=== PATIENT | male | born 1930 | race Caucasian/White ===

== ENCOUNTER → 2017-03-01 | Outpatient (CLI) | payer MEDICARE, BC ==
[2017-03-01 15:15] LABS: Basophils # (A) 0.1 k/uL (0-0.2); Basophils % (A) 0 %; CH 31.5; CHCM 33.1; Eosinophils # (A) 0.2 k/uL (0-0.7); Eosinophils % (A) 1 %; HCT 48.6 % (39.0-53.0); HGB 15.3 gm/dL (13.0-17.5); Luc # (Auto) 0.25; Luc % (Auto) 2; Lymphocytes # (A) 2.3 k/uL (1.0-4.8); Lymphocytes % (A) 18 %; MCH 30.2 pg (25.0-35.0); MCHC 31.5 g/dL (31.0-37.0); MCV 95.9 fL (80.0-100.0); Mean Platelet Volume 8.8; Monocytes # (A) 0.8 k/uL (0-1.0); Monocytes % (A) 6 %; Neutrophils # (A) 9.5 k/uL (1.3-7.7); Neutrophils % (A) 73 %; RBC 5.07 m/uL (4.30-5.90); RDW 13.9 % (11.5-15.5); WBC (Perox) 13.47
[2017-03-01 15:34] LABS: ALT 29 U/L (21-72); AST 25 U/L (17-59); Alkaline Phosphatase 81 U/L (38-126); Anion Gap 10 mmol/L; Blood Urea Nitrogen 30 mg/dL (9-20); Calcium 9.5 mg/dL (8.4-10.2); Carbon Dioxide 27 mmol/L (22-30); Chloride 108 mmol/L (98-107); Glucose 105 mg/dL (74-99); Non-African American GFR(MDRD) >60 (>60 ml/min/1.73 sqM); Potassium 4.4 mmol/L (3.5-5.1); Sodium 145 mmol/L (137-145); Total Bilirubin 0.8 mg/dL (0.2-1.3)
== END | disposition home or self-care (01) ==
LOC: LABWHC1 14:44
PROVIDERS: ATTEND Family Medicine
DX: R53.83 Other fatigue (principal); R11.0 Nausea; R63.4 Abnormal weight loss
CPT/HCPCS: 36415; 80053; 85025

== ENCOUNTER → 2017-03-08 | Outpatient (CLI) | payer MEDICARE, BC ==
[2017-03-08 13:51] LABS: Blood Urea Nitrogen 22 mg/dL (9-20); Non-African American GFR(MDRD) >60 (>60 ml/min/1.73 sqM)
--- NOTE | 2017-03-08 15:37 | CT ---
EXAMINATION TYPE: CT abdomen pelvis w con DATE OF EXAM: 03/08/2017 COMPARISON: NONE INDICATION: Patient complains of generalized abdominal pain and diarrhea. DLP: 1648 mGycm, Automated exposure control for dose reduction was used. CONTRAST: 100 mL of Omnipaque 300. Study performed with Oral Contrast TECHNIQUE: Axial images were obtained from above the diaphragm to the pubic rami in the axial plane a t 5 mm thick sections. Reconstructed images are reviewed on the computer in the coronal plane. FINDINGS: Limited CT sections are obtained the lung bases. The lung bases are clear. CT ABDOMEN: Loop of colon is anterior to the liver. Liver: Multiple small hepatic cysts appear to be present. There is elevation of the right diaphragm. Spleen: Normal Pancreas: Normal Adrenal glands: The adrenal glands are normal. Gallbladder: Normal Kidneys: No masses are evident. No hydronephrosis is present. Multiple renal cysts are present. De layed images were obtained through the kidneys, which remain unremarkable. Aorta: Vascular calcification is within the aorta. There may be mild prominence of the aortic calibe r. However, this tapers normally throughout its visualized course. Aneurysmal dilatation is not evide nt. Inferior vena cava: Normal. CT PELVIS: Loops of bowel within the abdomen and pelvis are normal. Large fecal bolus at the level the rectu m. Appendix: Not identified Urinary bladder: Normal. Genitourinary structures: Prostate appears unremarkable. Osseous structures: No suspicious lytic or sclerotic lesions. Facet changes are in the lower lumbar s pine. IMPRESSIONS: 1. Fecal bolus at the level the rectum. 2. Renal and hepatic cysts.
== END | disposition home or self-care (01) ==
LOC: RADCTMAIN 13:15
PROVIDERS: ATTEND Family Medicine
DX: N28.1 Cyst of kidney, acquired (principal); K76.89 Other specified diseases of liver; R11.0 Nausea; Z91.040 Latex allergy status
CPT/HCPCS: 82565; 84520; 74177; 36415; Q9967

== ENCOUNTER → 2017-03-10 | Outpatient (CLI) | payer MEDICARE, BC ==
--- NOTE | 2017-03-10 15:44 | FL ---
EXAMINATION TYPE: FL UGI air DATE OF EXAM: 03/10/2017 COMPARISON: NONE HISTORY: Menorrhagia abdominal pain diarrhea TECHNIQUE: A double contrast UGI study is performed. FINDINGS: Note is made during the examination is some retained contrast through the colon causing mild limitati on during portions of the exam Esophagus dilates to normal caliber has normal contour to the gastroesophageal junction. Gastroesopha geal junction opens to normal caliber. Some reflux is evident during the exam. Fundus body and antrum of the stomach are well visualized. No intraluminal or extramural defects are evident Primarily empties into the duodenal cap and sweep. There is some deviation of the second portion of t he duodenum. Duodenal fold pattern appears normal. IMPRESSION: 1. Gastroesophageal reflux. 2. Mild duodenitis
== END ==
LOC: RADFLWHC 09:25
PROVIDERS: ATTEND Family Medicine
DX: K21.9 Gastro-esophageal reflux disease without esophagitis (principal); K29.80 Duodenitis without bleeding; R63.4 Abnormal weight loss; Z91.040 Latex allergy status
CPT/HCPCS: 74246

== ENCOUNTER → 2017-07-15 | Outpatient (CLI) | payer MEDICARE, BC | END | disposition home or self-care (01) | LOC: LABWHC1 12:05 | PROVIDERS: ATTEND Urology | DX: C61 Malignant neoplasm of prostate (principal) | CPT/HCPCS: 36415; 84153 ==

== ENCOUNTER → 2017-12-31 | Outpatient (CLI) | payer MEDICARE ==
[~2017-12-31] MED LIST: DOBUTamine 250 MG in DEXTROSE 5% IN WATER 250 ML IV ONE
--- NOTE | 2017-12-31 11:48 | ECHOF ---
Referral Reason:Aortic Root Dilation MEASUREMENTS -------- HEIGHT: 177.8 cm WEIGHT: 78.0 kg BP: 200/72 IVSd: 1.2 cm (0.6 - 1.1) LVIDd: 4.2 cm (3.9 - 5.3) LVPWd: 1.2 cm (0.6 - 1.1) IVSs: 1.9 cm LVIDs: 1.8 cm LVPWs: 1.7 cm LAESV Index (A-L): 21.70 ml/m Ao Diam: 3.7 cm (2.0 - 3.7) AV Cusp: 2.0 cm (1.5 - 2.6) LA Diam: 3.1 cm (2.7 - 3.8) AR PHT: 481 ms RAP: 5.00 mmHg RVSP: 11.24 mmHg FINDINGS -------- Atrial fibrillation. This was a technically adequate study. The left ventricular size is normal. There is mild concentric left ventricular hypertrophy. Overa ll left ventricular systolic function is normal with, an EF between 55 - 60 %. The right ventricle is normal in size and function. Normal LA size by volume 22+/-6 ml/m2. The right atrium is normal in size. Aortic valve is trileaflet and is mildly thickened. There is moderate aortic regurgitation. There is no evidence of aortic stenosis. The mitral valve leaflets are mildly thickened. There is trace to mild mitral regurgitation. Trace tricuspid regurgitation present. Right ventricular systolic pressure is normal at < 35 mmHg. There is no evidence of pulmonary hypertension. Trace/mild (physiologic) pulmonic regurgitation. 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 The aortic root is dilated measuring 3.7cm. IVC Not well visulized. There is a small pericardial effusion is located near the right ventricle. CONCLUSIONS -------- 1. Atrial fibrillation. 2. This was a technically adequate study. 3. The left ventricular size is normal. 4. There is mild concentric left ventricular hypertrophy. 5. Overall left ventricular systolic function is normal with, an EF between 55 - 60 %. 6. Normal LA size by volume 22+/-6 ml/m2. 7. Aortic valve is trileaflet and is mildly thickened. 8. There is moderate aortic regurgitation. 9. The mitral valve leaflets are mildly thickened. 10. There is trace to mild mitral regurgitation. 11. Trace tricuspid regurgitation present. 12. Right ventricular systolic pressure is normal at < 35 mmHg. 13. There is no evidence of pulmonary hypertension. 14. 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 15. The aortic root is dilated measuring 3.7cm. 16. IVC Not well visulized. 17. There is a small pericardial effusion is located near the right ventricle. INTERNAL GRINDER: Rusty Lee RDCS
== END | disposition home or self-care (01) ==
LOC: RADNMMAIN 09:27
PROVIDERS: ATTEND Family Medicine
DX: I08.0 Rheumatic disorders of both mitral and aortic valves (principal); I48.91 Unspecified atrial fibrillation; I25.9 Chronic ischemic heart disease, unspecified; Z91.040 Latex allergy status
CPT/HCPCS: 93306; J1250

== ENCOUNTER 2018-04-12 13:57 | Inpatient (IN) | payer MEDICARE ==
[2018-04-12] MEDS ORDERED: MORPHINE SULFATE 2 MG/ML SYRINGE IVP STA ×3 (14:52→19:34)
--- NOTE | 2018-04-12 14:59 | ED ---
General Adult HPI - General Stated complaint: Fall Time Seen by Provider: 04/12/18 14:00 Source: RN notes reviewed - History of Present Illness Initial comments: This is an 87-year-old male who presents emergency Department complaining that his right hip hurts. Patient states tripped over shoes and fell backwards onto his hip. states she witnessed it is well he never hit his head or neck. Patient denies hitting his head or neck. Patient denies any headache patient denies neck pain patient denies any numbness or weakness. Patient denies any other pain besides his right hip. Patient denies any knee pain or ankle pain or foot pain. - Related Data Home Medications Medication Instructions Recorded Confirmed Levothyroxine Sodium [Synthroid] 25 mcg PO DAILY 04/12/18 04/12/18 Lisinopril 40 mg PO DAILY 04/12/18 04/12/18 Allergies Allergy/AdvReac Type Severity Reaction Status Date / Time latex Allergy Rash/Hives Verified 04/12/18 14:59 Review of Systems ROS Statement: Those systems with pertinent positive or pertinent negative responses have been documented in the HPI. ROS Other: All systems not noted in ROS Statement are negative. General Exam - General Exam Comments Initial Comments: GENERAL: Patient is well-developed and well-nourished. Patient is nontoxic and well- hydrated and is in mild distress. ENT: Neck is soft and supple. No significant lymphadenopathy is noted. Oropharynx is clear. Moist mucous membranes. Neck has full range of motion without eliciting any pain. EYES: The sclera were anicteric and conjunctiva were pink and moist. Extraocular movements were intact and pupils were equal round and reactive to light. Eyelids were unremarkable. PULMONARY: Unlabored respirations. Good breath sounds bilaterally. No audible rales rhonchi or wheezing was noted. CARDIOVASCULAR: There is a regular rate and rhythm without any murmurs gallops or rubs. ABDOMEN: Soft and nontender with normal bowel sounds. SKIN: Skin is clear with no lesions or rashes and otherwise unremarkable. NEUROLOGIC: Patient is alert and oriented x3. Cranial nerves II through XII are grossly intact. Motor and sensory are also intact. Normal speech, volume and content. Symmetrical smile. MUSCULOSKELETAL: Patient has tenderness of the left hip on palpation as well as pain with external rotation LYMPHATICS: No significant lymphadenopathy is noted PSYCHIATRIC: Normal psychiatric evaluation. Course Vital Signs 04/12/18 04/12/18 14:45 15:57 Temperature 97.0 F L Pulse Rate 57 L 58 L Respiratory 18 16 Rate Blood Pressure 220/97 221/98 O2 Sat by Pulse 98 98 Oximetry Medical Decision Making - Medical Decision Making EKG shows sinus bradycardia 57 bpm. Was 236 QRS 1:30 for QT intervals 464 QTC is 451. Patient's EKG shows right bundle shereen block and there are some T- wave inversions in the precordial leads V3 through V6 as well as inferior leads. I spoke with [facility] from [facility] she agreed to accept the patient I admitted the patient and I wrote admitting orders and consult did the primary medical care doctor for medical management X-ray shows a femoral neck fracture on the right - Lab Data Result diagrams: 04/12/18 15:02 04/12/18 15:02 Lab Results 04/12/18 04/12/18 04/12/18 Range/Units 15:02 15:02 15:02 WBC 9.3 (3.8-10.6) k/uL RBC 4.70 (4.30-5.90) m/uL Hgb 14.0 (13.0-17.5) gm/dL Hct 42.1 (39.0-53.0) % MCV 89.6 (80.0-100.0) fL MCH 29.7 (25.0-35.0) pg MCHC 33.2 (31.0-37.0) g/dL RDW 13.9 (11.5-15.5) % Plt Count 187 (150-450) k/uL Neutrophils % 77 % Lymphocytes % 13 % Monocytes % 6 % Eosinophils % 2 % Basophils % 0 % Neutrophils # 7.2 (1.3-7.7) k/uL Lymphocytes # 1.2 (1.0-4.8) k/uL Monocytes # 0.6 (0-1.0) k/uL Eosinophils # 0.2 (0-0.7) k/uL Basophils # 0.0 (0-0.2) k/uL PT 10.8 (9.0-12.0) sec INR 1.1 (<1.2) APTT 22.6 (22.0-30.0) sec Sodium 139 (137-145) mmol/L Potassium 3.5 (3.5-5.1) mmol/L Chloride 110 H (98-107) mmol/L Carbon Dioxide 26 (22-30) mmol/L Anion Gap 3 mmol/L BUN 15 (9-20) mg/dL Creatinine 0.90 (0.66-1.25) mg/dL Est GFR (CKD-EPI)AfAm 88 (>60 ml/min/1.73 sqM) Est GFR (CKD-EPI)NonAf 76 (>60 ml/min/1.73 sqM) Glucose 99 (74-99) mg/dL Calcium 9.1 (8.4-10.2) mg/dL Total Bilirubin 0.8 (0.2-1.3) mg/dL AST 22 (17-59) U/L ALT 24 (21-72) U/L Alkaline Phosphatase 65 (38-126) U/L Total Protein 5.9 L (6.3-8.2) g/dL Albumin 3.3 L (3.5-5.0) g/dL Disposition Clinical Impression: Femoral neck fracture Disposition: ADMITTED IP TO THIS HOSP Referrals: Roscoe Kessler MD [Primary Care Provider] - 1-2 days Time of Disposition: 16:30
[2018-04-12 15:25] LABS: Basophils % (A) 0 %; Eosinophils # (A) 0.2 k/uL (0-0.7); Eosinophils % (A) 2 %; HCT 42.1 % (39.0-53.0); Lymphocytes # (A) 1.2 k/uL (1.0-4.8); Lymphocytes % (A) 13 %; MCH 29.7 pg (25.0-35.0); MCHC 33.2 g/dL (31.0-37.0); MCV 89.6 fL (80.0-100.0); Mean Platelet Volume 7.6; Monocytes # (A) 0.6 k/uL (0-1.0); Monocytes % (A) 6 %; Neutrophils # (A) 7.2 k/uL (1.3-7.7); Neutrophils % (A) 77 %; Platelet Count 187 k/uL (150-450); RDW 13.9 % (11.5-15.5); WBC 9.3 k/uL (3.8-10.6)
[2018-04-12 15:37] LABS: Albumin 3.3 g/dL (3.5-5.0); Calcium 9.1 mg/dL (8.4-10.2); Potassium 3.5 mmol/L (3.5-5.1); Total Bilirubin 0.8 mg/dL (0.2-1.3); Total Protein 5.9 g/dL (6.3-8.2)
[2018-04-12 15:40] LABS: INR 1.1 (<1.2); Partial Thromboplastin Time 22.6 sec (22.0-30.0); Prothrombin Time 10.8 sec (9.0-12.0)
--- NOTE | 2018-04-12 15:41 | XR ---
EXAMINATION TYPE: XR chest 1V DATE OF EXAM: 04/12/2018 COMPARISON: NONE HISTORY: 87-year-old male with fall TECHNIQUE: Single frontal view of the chest is obtained. FINDINGS: Low lung volumes. Elevated right hemidiaphragm obscuring the right heart margin. No consolidation, si gnificant pleural effusion, or pneumothorax seen along for these limitations. IMPRESSION: Elevated right hemidiaphragm and low lung volumes limiting assessment. There are chronic appearing ch anges without definite acute process.
--- NOTE | 2018-04-12 15:56 | XR ---
EXAMINATION TYPE: XR Hip RT and AP Pelvis DATE OF EXAM: 04/12/2018 COMPARISON: CT abdomen pelvis 03/08/2017 HISTORY: Trauma and pain TECHNIQUE: A single AP view of the pelvis is obtained. Two views of the hip are obtained. FINDINGS: There is a right femoral neck fracture present. Minimal displacement. No dislocation. Vascu lar calcifications noted incidentally. There are surgical clips present in the pelvis. Bone mineraliz ation is reduced. Degenerative disc changes in the visualized spine, there is a spinal curvature. IMPRESSION: Right femoral neck fracture.
[2018-04-12] MEDS ORDERED: SODIUM CHLORIDE 0.9% 1,000 ML IV ONE (16:31)
[2018-04-12] MEDS ORDERED: hydrALAZINE HCL 20 MG/ML 1 ML VIAL IVP STA (17:10)
[2018-04-12 21:27] LABS: Appearance,Urine Clear (Clear); Bilirubin,Urine Negative (Negative); Blood,Urine Negative (Negative); Color,Urine Colorless; Glucose,Urine (UA) Negative (Negative); Ketones,Urine Trace (Negative); Leukocyte Esterase,Urine Negative (Negative); Nitrite,Urine Negative (Negative); Protein,Urine Negative (Negative); Specific Gravity,Urine 1.006 (1.001-1.035); Urobilinogen,Urine <2.0 mg/dL (<2.0)
[2018-04-12] MEDS ORDERED: hydrALAZINE HCL 10 MG TAB PO SCH (22:00)
--- NOTE | 2018-04-12 22:21 | CT ---
EXAMINATION: CT brain wo/w con DATE AND TIME: 04/12/2018 9:43 PM ORDERING PROVIDER: Roscoe Kessler MD CLINICAL INDICATION: Fall, pain TECHNIQUE: Standard departmental protocol. COMPARISON: None. DESCRIPTION: The calvarium is intact. There is no intracranial hemorrhage. There is no mass or mass effect. There is no definite new attenu ation defect. Remainder of the intra-axial and extra-axial compartment examination is unremarkable. The contrast enhancement pattern is normal. The paranasal sinuses, middle ear cavities, and mastoid sinus air cells are clear. The orbits are int act. IMPRESSION: NO ACUTE PROCESS.
[2018-04-13 00:16] VITALS: BMI 25.8
[2018-04-13] MEDS: hydrALAZINE HCL 25 MG TAB PO SCH ×4 (01:59→21:37)
[2018-04-13] MEDS ORDERED: ACETAMINOPHEN IV (For NPO) 1,000 MG in EMPTY BAG 1 BAG IVPB STA (06:55)
--- NOTE | 2018-04-13 10:03 | P.HPOR ---
History of Present Illness H&P Date: 04/13/18 This is an 87-year-old male who is admitted for right hip fracture. The patient has a history of dementia and is a poor historian. There's no family present in the room to obtain a history. According to the patient's records the patient tripped over his shoes and fell backwards. A CT of the brain done in the emergency room is negative for any acute process. X-rays of the right hip and pelvis from the emergency room [facility] show a right femoral neck fracture. Patient's past medical history significant for prostate cancer, dementia, hyperlipidemia, hypertension and thyroid disorder. Review of Systems ROS unobtainable: due to mental status Past Medical History Past Medical History: Cancer, Dementia, Hyperlipidemia, Hypertension, Prostate Disorder, Thyroid Disorder Additional Past Medical History / Comment(s): prostate CA History of Any Multi-Drug Resistant Organisms: None Reported Past Surgical History: Prostate Surgery, Tonsillectomy Past Psychological History: No Psychological Hx Reported Smoking Status: Never smoker Past Alcohol Use History: None Reported Past Drug Use History: None Reported Medications and Allergies Home Medications Medication Instructions Recorded Confirmed Type Levothyroxine Sodium [Synthroid] 25 mcg PO DAILY 04/12/18 04/12/18 History Lisinopril 40 mg PO DAILY 04/12/18 04/12/18 History Allergies Allergy/AdvReac Type Severity Reaction Status Date / Time latex Allergy Rash/Hives Verified 04/12/18 14:59 Physical Examination On exam patient is lying comfortably in bed in no acute distress. There is tenderness to palpation over the right hip. Skin is intact. Calf is soft and nontender to palpation. Patient has full foot and ankle motion bilaterally without pain or difficulty. Right lower extremity is warm and well perfused. Patient has full range of motion of the head and neck. No tenderness to palpation of bilateral upper extremities. Left lower extremity with good range of motion without pain. Neurovascular status and circulatory status are intact. Results X-rays of the right hip and pelvis show right femoral neck fracture. - Labs Labs: Abnormal Lab Results - Last 24 Hours (Table) 04/12/18 04/12/18 Range/Units 15:02 21:03 Chloride 110 H (98-107) mmol/L Total Protein 5.9 L (6.3-8.2) g/dL Albumin 3.3 L (3.5-5.0) g/dL Urine Ketones Trace H (Negative) H & H 04/12/18 Range/Units 15:02 Hgb 14.0 (13.0-17.5) gm/dL Hct 42.1 (39.0-53.0) % Coagulation 04/12/18 Range/Units 15:02 INR 1.1 (<1.2) Result Diagrams: 04/12/18 15:02 04/12/18 15:02 Assessment and Plan (1) Fall Current Visit: Yes Status: Acute Code(s): W19.XXXA - UNSPECIFIED FALL, INITIAL ENCOUNTER SNOMED Code(s): 4919274 (2) Femoral neck fracture Current Visit: Yes Status: Acute Code(s): S72.009A - FRACTURE OF UNSP PART OF NECK OF UNSP FEMUR, INIT SNOMED Code(s): 2963597 Plan: 1. Patient is to be NPO. 2. Nonweightbearing to the right lower extremity. 3. DVT prophylaxis with SCDs. 4. Appreciate input from medicine. 5. Right hip hemiarthroplasty is scheduled for this afternoon pending medical clearance and consented.
[2018-04-13] MEDS: MORPHINE SULFATE 2 MG/ML SYRINGE IVP PRN ×2 (10:34→18:55)
--- NOTE | 2018-04-13 11:55 | PN ---
PROGRESS NOTE DATE OF SERVICE: 04/13/2018 CHIEF COMPLAINT: Fractured right hip and FUO. HISTORY OF PRESENT ILLNESS: This gentleman done fairly well during the night. He has been very agitated, however. Blood pressure is now under good control. PHYSICAL EXAM: He is awake and alert. He is confused. Head, ears, eyes, nose, mouth, and throat are normal. Chest is clear. Cardiac exam is normal. The abdomen is soft, nontender. Roberson catheter is draining. Extremities are normal. Neurologically, he is unchanged. IMPRESSION: 1. Fracture of the right hip. 2. Fever of unknown origin. 3. Dementia. 4. Hypothyroidism. PLAN: He is cleared for surgery and is going to the OR today. We await cultures of the blood and urine. MMODL / IJN: [id number] /
--- NOTE | 2018-04-13 12:04 | CONS ---
CONSULTATION CHIEF COMPLAINT: Fall. HISTORY OF PRESENT ILLNESS: This is another admission for this 87-year-old white male with dementia. He lives at home with his and he has been fairly healthy over the years. He is becoming an increasingly difficult management problem. He has a history of hypertension. It is not clear how well it is being controlled. He apparently fell at home and was brought to the emergency room where he was found to have a right femoral neck fracture. In the emergency room, he apparently fell again. There was no evidence of any new injury. He did strike his head and a CT was ordered and it was normal. The only other difficulty is that he is running a fever. There has been no history of abdominal pain, vomiting, cough, urinary symptoms, etc. Review of systems could not be obtained due to his dementia. He is allergic to LATEX. When he was last seen in January, he was on Tenoretic 100 once a day, lisinopril 40 once a day, potassium 20 mEq three a day, Bentyl 10 mg q.i.d. p.r.n., levothyroxine 0.025 mg once a day, simvastatin 40 mg at bedtime, Lomotil 1 or 2 q.i.d. p.r.n. and 81 mg of aspirin. He is not a smoker. PHYSICAL EXAM: Blood pressure is 209/80 with a pulse of 92 and he was in sinus, respirations 16, temperature is 100.5. GENERAL: He appeared to be slightly pale, slightly dehydrated. Lymph nodes are not enlarged. Head, ears, eyes, nose, mouth, and throat were grossly normal and mucous membranes are dry. Neck veins are not distended. Carotids are normal. Chest is clear to auscultation and percussion. Cardiac exam demonstrates a sinus rhythm with no murmurs or extra sounds. Abdomen is soft and nontender without visceromegaly or masses. EXTREMITIES: Normal except for external rotation of the right leg. Neurologically, he was confused, but otherwise intact. IMPRESSION: 1. Fracture of the right hip. 2. Fever of unknown origin. 3. Dementia. 4. History of hypertension. 5. Hypothyroidism. PLAN: 1. Bed rest. 2. IV fluids. 3. Orthopedic consult. 4. A Roberson catheter drainage for UA and culture. 5. Blood cultures. MMODL / IJN: [id number] /
[2018-04-13] MEDS ORDERED: IV FLUID CONTINUATION 1,000 ML IV ONE (12:50)
[2018-04-13] MEDS ORDERED: MAGNESIUM HYDROXIDE 2,400 MG/10 ML CUP PO PRN (13:49)
[2018-04-13] MEDS ORDERED: DIAZEPAM 5 MG TAB PO PRN (13:49)
[2018-04-13] MEDS ORDERED: NALOXONE 0.4 MG/ML 1 ML VIAL IV PRN (13:49)
[2018-04-13] MEDS ORDERED: traMADol 50 MG TAB PO PRN ×2 (13:51)
[2018-04-13] MEDS ORDERED: MIDAZOLAM 2 MG/2 ML VIAL ONE (14:34)
[2018-04-13] MEDS ORDERED: fentaNYL (PF) 50 MCG/ML 2 ML AMP ONE (14:34)
[2018-04-13] MEDS ORDERED: LABETALOL 5 MG/ML VIAL MDV ONE (14:34)
[2018-04-13] MEDS ORDERED: KETAMINE 10 MG/ML 20 ML VIAL ONE (14:34)
[2018-04-13] MEDS ORDERED: SODIUM CHLORIDE 0.9% 50 ML with ceFAZolin 2,000 MG IV ONE ×2 (14:44)
[2018-04-13] MEDS ORDERED: ceFAZolin 1,000 MG in SODIUM CHLORIDE 0.9% 1,000 ML IRRIGATION ONE (15:11)
--- NOTE | 2018-04-13 15:34 | P.OP ---
Date of Procedure: 04/13/18 Preoperative Diagnosis: Subcapital fracture right hip Postoperative Diagnosis: Subcapital fracture right hip Procedure(s) Performed: Right hip hemiarthroplasty Implants: Pérez and nephew Polarstem size 5 standard Pérez & Nephew tandem unipolar, 55 mm Pérez & Nephew tandem unipolar 12/14 taper sleeve, +4 mm All components were press-fit. Anesthesia: spinal Surgeon: Johnny Billy Mail Opener #1: Zeny Dimas Estimated Blood Loss (ml): 50 Pathology: other (Femoral head) Condition: stable Disposition: PACU Indications for Procedure: This is an 87-year-old gentleman sustained a fall yesterday. He sustained a subcapital fracture of his right hip after discussing the surgical nonsurgical treatment options with him and his family at length, I recommended a right hip hemiarthroplasty and informed consent was obtained. Operative Findings: The operative findings are consistent with a subcapital fracture of the right hip Description of Procedure: Patient was seen and evaluated in the preoperative area, consent was reviewed and the operative site was marked with a skin marker. Patient was then brought to the operating room and given 2 g of Ancef intravenously. A spinal anesthetic was administered by the anesthesia department. Patient was then placed in a lateral decubitus position and held with a Montral hip positioner. The bony prominences were well-padded and an axillary roll was placed. The hip was then prepped and draped in the usual sterile fashion. A universal timeout was then performed which confirmed the patient's name, surgical site, ALLERGIES, and procedure. A standard anterolateral approach the hip was performed. Skin and subcutaneous tissues were sharply incised with an incision centered over the tip of the greater trochanter. The incision was carefully dissected down to the fascia. The fascia was then split in line with skin incision and a Charnley retractor was gently placed. The abductors were then identified, and the anterior one third of the abductors were released off the trochanter and one large sleeve. The fracture hematoma was evacuated and the proximal femur was exposed by externally rotating the femur. The fracture site was readily visualized. Next , using an osteotomy guide, the proximal femur was osteotomized at the appropriate level of the above the lesser trochanter. This bone was then removed. Attention was then turned to the femoral head. Using a corkscrew, the femoral head was removed from the acetabulum without incident. The acetabulum was inspected, and found to have no significant arthrosis. Femoral head was then measured. Attention was then redirected to the femur. Proximal femur was re-exposed and a box osteotome was used to lateralize the proximal femur. A candle molder hand was then used to locate the femoral canal. Sequential broaching was then performed to the appropriate size. The calcar was then planed and trial head and neck were placed. The hip was then gently reduced. Leg lengths were checked and found to be equal. Hip was then taken through a full range of motion was stable throughout. The hip was then gently dislocated with the aid of a bone hook. The trial head and neck were then removed. The femoral broach was then inspected and found to have a secure fit. The broach was then removed. The hip was then copiously irrigated with antibiotic solution with a pulse lavage. Components were then opened and the femoral stem was then impacted into the proximal femur. The trunnion was cleaned and dried, and the femoral head and neck were then impacted. Hip was again gently reduced. Again leg lengths were checked and found to be equal, and the hip was taken through a full range of motion and found to be stable. The hip was again irrigated with pulsatile lavage, then followed by the Irrrisept solution. The abductors were then repaired through drill holes to the bone to the greater trochanter, utilizing #5 Ethibond suture. Next the fascia was repaired with #2 strata fix suture. The subcutaneous tissue was then repaired with 3-0 Vicryl. The subcuticular tissue was then repaired with 3-0 strata fix suture. Skin was then closed with Dermabond tape. A sterile dressing was then applied and the patient was transported to the recovery room in stable condition. Mail Opener HERMAN Escoto was required due to the complexity of surgery the need for skilled surgical services coordinator. She assisted with positioning the patient , draping the patient, retraction during the surgery, and closure of the wound.
[2018-04-13] MEDS: LACTATED RINGERS 1,000 ML IV ONE ×2 (15:38→18:21)
[2018-04-13] MEDS: hydrALAZINE HCL 20 MG/ML 1 ML VIAL IV ONE ×2 (16:21→16:37)
[2018-04-13] MEDS ORDERED: LABETALOL 5 MG/ML VIAL MDV IV ONE (16:50)
--- NOTE | 2018-04-13 17:35 | XR ---
EXAMINATION TYPE: XR Hip Limited RT DATE OF EXAM: 04/13/2018 COMPARISON: NONE HISTORY: Postop hip pain TECHNIQUE: Single view FINDINGS: There is a right hip prosthesis. Components are in anatomic position. IMPRESSION: New right hip prosthesis. No complicating process.
[2018-04-13] MEDS: SODIUM CHLORIDE 0.9% 1,000 ML IV SCH ×2 (18:20→21:37)
[2018-04-13 19:26] LABS: Basophils % (A) 0 %; Eosinophils # (A) 0.1 k/uL (0-0.7); Eosinophils % (A) 1 %; HCT 40.6 % (39.0-53.0); HGB 13.3 gm/dL (13.0-17.5); Lymphocytes # (A) 0.7 k/uL (1.0-4.8); Lymphocytes % (A) 4 %; MCH 29.6 pg (25.0-35.0); MCHC 32.9 g/dL (31.0-37.0); Mean Platelet Volume 8.2; Monocytes # (A) 0.6 k/uL (0-1.0); Monocytes % (A) 3 %; Neutrophils # (A) 14.7 k/uL (1.3-7.7); Neutrophils % (A) 91 %; Platelet Count 160 k/uL (150-450); RBC 4.51 m/uL (4.30-5.90); WBC 16.2 k/uL (3.8-10.6)
[2018-04-13] MEDS: SENNOSIDES-DOCUSATE SODIUM 1 EACH TAB PO SCH (21:37)
[2018-04-14] MEDS: ceFAZolin IN SWFI 2 GM/20 ML SYRINGE IVP SCH ×2 (01:59→08:02)
[2018-04-14] MEDS: LISINOPRIL 20 MG TAB PO SCH (08:02)
[2018-04-14] MEDS: RIVAROXABAN 10 MG TAB PO SCH (08:02)
[2018-04-14] MEDS: hydrALAZINE HCL 25 MG TAB PO SCH ×3 (08:02→20:09)
--- NOTE | 2018-04-14 09:39 | P.PN ---
Subjective Progress Note Date: 04/14/18 This is an 87-year-old male who is status post right hip hemiarthroplasty. This is postoperative day #1. Patient is seen and evaluated at bedside. Patient states that his pain is well controlled. Patient denies any fever/chills , numbness, weakness, tingling, abdominal pain, shortness of breath or chest pain. Objective - Vital Signs Vital signs: Vital Signs Temp 98.3 F 04/14/18 07:20 Pulse 94 04/14/18 07:20 Resp 18 04/14/18 07:20 BP 182/85 04/14/18 07:20 Pulse Ox 93 L 04/14/18 07:20 Intake & Output 04/13/18 04/14/18 04/14/18 18:59 06:59 18:59 Intake Total 1451 1937 237 Output Total 250 420 Balance 1201 1517 237 Intake: IV 1451 Intake, IV Titration 1197 Amount Lactated Ringers 1,000 ml 500 @ 0 mls/hr IV .[facility] Rx#:[id number] Sodium Chloride 0.9% 1, 697 000 ml @ 65 mls/hr IV . [id number] [facility] Rx#:[id number] Oral 740 237 Output: Urine 200 420 Estimated Blood Loss 50 Other: Voiding Method Indwelling Catheter Indwelling Catheter # Voids 1 - Exam Vital signs are stable. Patient is in no acute distress and is alert and oriented 3. Calf is soft and nontender to palpation. Dressing is clean, dry, and intact. Patient has full foot and ankle motion without pain or difficulty. Neurovascular status and circulatory status are intact. - Labs CBC & Chem 7: 04/13/18 19:07 04/12/18 15:02 Labs: Abnormal Lab Results - Last 24 Hours (Table) 04/13/18 Range/Units 19:07 WBC 16.2 H (3.8-10.6) k/uL Neutrophils # 14.7 H (1.3-7.7) k/uL Lymphocytes # 0.7 L (1.0-4.8) k/uL Assessment and Plan (1) Fall Current Visit: Yes Status: Acute Code(s): W19.XXXA - UNSPECIFIED FALL, INITIAL ENCOUNTER SNOMED Code(s): 3190936 (2) Femoral neck fracture Current Visit: Yes Status: Acute Code(s): S72.009A - FRACTURE OF UNSP PART OF NECK OF UNSP FEMUR, INIT SNOMED Code(s): 6067453 Plan: Continue routine postop care. Continue hip precautions with abductor pillow. Continue antocoagulation. Weightbearing as tolerated with a walker. Leave dressing in place for 10 days. Likely discharge to rehab the next 1-2 days.
--- NOTE | 2018-04-14 18:23 | PN ---
PROGRESS NOTE CHIEF COMPLAINT: Status post ORIF of hip fracture. HISTORY OF PRESENT ILLNESS: This gentleman has been stable. Vital signs have been good. He has not been particularly agitated. PHYSICAL EXAM: Chest is clear. Cardiac exam is normal with sinus rhythm. The abdomen is soft and dressing is dry. IMPRESSION: 1. Status post open reduction and internal fixation of the hip. 2. Dementia. PLAN: No change in program. MMODL / IJN: [id number] /
[2018-04-14] MEDS: SENNOSIDES-DOCUSATE SODIUM 1 EACH TAB PO SCH (20:09)
[2018-04-14] MEDS: MORPHINE SULFATE 2 MG/ML SYRINGE IVP PRN (20:11)
[2018-04-14] MEDS: SODIUM CHLORIDE 0.9% 1,000 ML IV SCH (21:48)
[2018-04-15 07:08] LABS: Basophils % (A) 0 %; Eosinophils # (A) 0.3 k/uL (0-0.7); Eosinophils % (A) 3 %; HCT 34.4 % (39.0-53.0); HGB 11.4 gm/dL (13.0-17.5); Lymphocytes # (A) 0.7 k/uL (1.0-4.8); Lymphocytes % (A) 7 %; MCH 29.6 pg (25.0-35.0); MCHC 33.2 g/dL (31.0-37.0); MCV 89.1 fL (80.0-100.0); Monocytes # (A) 0.7 k/uL (0-1.0); Monocytes % (A) 7 %; Neutrophils # (A) 8.1 k/uL (1.3-7.7); Neutrophils % (A) 81 %; Platelet Count 134 k/uL (150-450); RBC 3.86 m/uL (4.30-5.90); RDW 13.9 % (11.5-15.5)
[2018-04-15 07:44] VITALS: RESP 16
--- NOTE | 2018-04-15 07:48 | P.PN ---
Subjective Progress Note Date: 04/15/18 This is an 87-year-old male who is status post right hip hemiarthroplasty. This is postoperative day #2. Patient is seen and evaluated at bedside. No events overnight. Patient denies any fever/chills, numbness, weakness, tingling , abdominal pain, shortness of breath or chest pain. Objective - Vital Signs Vital signs: Vital Signs Temp 98.9 F 04/15/18 07:43 Pulse 80 04/15/18 07:43 Resp 16 04/15/18 07:43 BP 169/79 04/15/18 07:43 Pulse Ox 94 L 04/15/18 07:43 Intake & Output 04/14/18 04/15/18 04/15/18 18:59 06:59 18:59 Intake Total 1137 885 Output Total 325 400 Balance 812 485 Intake: Intake, IV Titration 585 Amount Sodium Chloride 0.9% 1, 585 000 ml @ 65 mls/hr IV . [id number] [facility] Rx#:[id number] Oral 1137 300 Output: Urine 325 400 Uretheral ([place]) 325 Other: Voiding Method Indwelling Catheter Indwelling Catheter - Exam Vital signs are stable. Patient is in no acute distress. Calf is soft and nontender to palpation. Dressing is clean, dry, and intact. Neurovascular status and circulatory status are intact. - Labs CBC & Chem 7: 04/15/18 06:42 04/12/18 15:02 Labs: Abnormal Lab Results - Last 24 Hours (Table) 04/15/18 Range/Units 06:42 RBC 3.86 L (4.30-5.90) m/uL Hgb 11.4 L (13.0-17.5) gm/dL Hct 34.4 L (39.0-53.0) % Plt Count 134 L (150-450) k/uL Neutrophils # 8.1 H (1.3-7.7) k/uL Lymphocytes # 0.7 L (1.0-4.8) k/uL Assessment and Plan (1) Fall Current Visit: Yes Status: Acute Code(s): W19.XXXA - UNSPECIFIED FALL, INITIAL ENCOUNTER SNOMED Code(s): 4851588 (2) Femoral neck fracture Current Visit: Yes Status: Acute Code(s): S72.009A - FRACTURE OF UNSP PART OF NECK OF UNSP FEMUR, INIT SNOMED Code(s): 3212045 Plan: Continue routine postop care. Continue hip precautions with abductor pillow. Continue antocoagulation. Weightbearing as tolerated with a walker. Leave dressing in place for 10 days. Likely discharge to rehab the next 1-2 days.
[2018-04-15] MEDS ORDERED: ACETAMINOPHEN TAB 325 MG TAB PO PRN (08:13)
--- NOTE | 2018-04-15 08:25 | P.DS ---
Providers Date of admission: 04/12/18 16:32 Attending physician: Johnny Billy Consults: 04/12/18 16:31 Consult Physician Urgent Consulting Provider: Roscoe Kessler Consult Reason/Comments: Medical management Do you want consulting provider notified?: Yes Primary care physician: Roscoe Kessler - Discharge Diagnosis(es) (1) Fall Current Visit: Yes Status: Acute (2) Femoral neck fracture Current Visit: Yes Status: Acute Hospital Course: This is a 87-year-old male who sustained a right hip fracture after a fall on . The patient presents for evaluation. After discussion and consideration patient elects to proceed with right hip hemiarthroplasty. The patient is seen preoperatively by and medically cleared for surgery by internal medicine. Patient is admitted to [facility] on 04/12/2018 and right hip hemiarthroplasty is done on 04/13/2018. The procedures performed without complication or sequelae. The patient is doing well postoperatively. Labs and vital signs are stable on day of discharge. On day of discharge patient's hip incision is healing well. There is minimal erythema. There is no drainage noted at this time. There is minimal soft tissue swelling to the hip and thigh. Patient has full foot and ankle motion without difficulty or pain. Neurovascular status to the right lower extremity is intact. Patient is discharged to rehab in good condition. Please see med rec for accurate list of home medications. Plan - Discharge Summary Discharge Rx Participant: No New Discharge Prescriptions: No Action Lisinopril 40 mg PO DAILY Levothyroxine Sodium [Synthroid] 25 mcg PO DAILY Discharge Medication List Levothyroxine Sodium [Synthroid] 25 mcg PO DAILY 04/12/18 [History] Lisinopril 40 mg PO DAILY 04/12/18 [History] Follow up Appointment(s)/Referral(s): Roscoe Kessler MD [Primary Care Provider] - 1-2 days
[2018-04-15] MEDS: hydrALAZINE HCL 25 MG TAB PO SCH ×2 (08:37→15:50)
[2018-04-15] MEDS: LISINOPRIL 20 MG TAB PO SCH (08:37)
[2018-04-15] MEDS: RIVAROXABAN 10 MG TAB PO SCH (08:37)
[2018-04-15] MEDS: SODIUM CHLORIDE 0.9% 1,000 ML IV SCH (09:50)
[2018-04-15 14:16] VITALS: BP 145/64; PULSE 88; TEMP 97.9
--- NOTE | 2018-04-15 19:03 | PN ---
PROGRESS NOTE CHIEF COMPLAINT: Dementia and fracture of the hip. HISTORY OF PRESENT ILLNESS: This gentleman is doing reasonably well and is expected to go to a fdc today. PHYSICAL EXAM: Cardiac is normal in chest is fairly clear. He is very agitated. IMPRESSION: 1. Status post fracture of the right hip. 2. Dementia. PLAN: Probably move to a fdc today. MMODL / IJN: [id number] /
== END 2018-04-15 20:10 | DRG 470 ==
LOC: EC 13:57 → 3SUR 16:32 → UNDODISIN 19:50
PROVIDERS: ADMIT Orthopaedic Surgery; ATTEND Orthopaedic Surgery
PROC: 0SRR0JA Replacement of Right Hip Joint, Femoral Surface with Synthetic Substitute, Uncemented, Open Approach (ICD-10-PCS; principal; 2018-04-13 08:40)
DX: S72.011A Unspecified intracapsular fracture of right femur, initial encounter for closed fracture (principal); W01.0XXA Fall on same level from slipping, tripping and stumbling without subsequent striking against object, initial encounter; Y92.009 Unspecified place in unspecified non-institutional (private) residence as the place of occurrence of the external cause; E03.9 Hypothyroidism, unspecified; E78.5 Hyperlipidemia, unspecified; F03.90 Unspecified dementia, unspecified severity, without behavioral disturbance, psychotic disturbance, mood disturbance, and anxiety; I10 Essential (primary) hypertension; Z79.899 Other long term (current) drug therapy; Z85.46 Personal history of malignant neoplasm of prostate; Z91.040 Latex allergy status; R50.9 Fever, unspecified
CPT/HCPCS: 36415; 70470; 71045; 73501; 73502; 80053; 81003; 84484; 85025; 85610; 85730; 86850; 86900; 86901; 88305; 88311; 93005; 94760; 96361; 96374; 96375; 96376; 99285